=== PATIENT | female | born 1970 ===

== ENCOUNTER → 2021-04-24 07:14 | Outpatient (CLI) | payer OTHER | END | disposition home or self-care (01) | LOC: LAB 07:14 | PROVIDERS: ATTEND Internal Medicine Cardiovascular Disease | DX: I10 Essential (primary) hypertension (principal); I11.9 Hypertensive heart disease without heart failure; E13.9 Other specified diabetes mellitus without complications ==

== ENCOUNTER 2021-08-13 08:00 | Outpatient (CLI) | payer OTHER | END 2021-08-13 08:30 | disposition home or self-care (01) | LOC: PPH VACUNA 08:00 | PROVIDERS: ATTEND Emergency Medicine Pediatric Emergency Medicine | DX: Z23 Encounter for immunization (principal) ==

== ENCOUNTER 2021-08-22 08:00 | Outpatient (CLI) | payer OTHER | END 2021-08-22 08:15 | disposition home or self-care (01) | LOC: PPH VACUNA 08:00 | PROVIDERS: ATTEND Emergency Medicine Pediatric Emergency Medicine | DX: Z23 Encounter for immunization (principal) ==

== ENCOUNTER 2021-09-25 08:22 | Outpatient (CLI) | payer OTHER | END 2021-09-25 12:58 | disposition home or self-care (01) | LOC: RAD 08:22 | DX: M54.59 Other low back pain (principal) ==

== ENCOUNTER 2021-09-27 07:26 | Outpatient (CLI) | payer OTHER | END 2021-09-27 07:34 | disposition home or self-care (01) | LOC: RAD 07:26 | PROVIDERS: ATTEND Internal Medicine Cardiovascular Disease | DX: M51.34 Other intervertebral disc degeneration, thoracic region (principal) ==

== ENCOUNTER 2021-10-26 08:31 | Outpatient (CLI) | payer OTHER | END 2021-10-26 08:37 | disposition home or self-care (01) | LOC: MRI 08:31 | PROVIDERS: ATTEND Orthopaedic Surgery Orthopaedic Surgery of the Spine | DX: M43.04 Spondylolysis, thoracic region (principal) | CPT/HCPCS: 72146 ==

== ENCOUNTER 2022-01-24 06:14 | Outpatient (CLI) | payer OTHER | END 2022-01-24 06:15 | disposition home or self-care (01) | LOC: LAB 06:14 | PROVIDERS: ATTEND Internal Medicine Cardiovascular Disease | DX: E03.9 Hypothyroidism, unspecified (principal); I10 Essential (primary) hypertension; I11.9 Hypertensive heart disease without heart failure; E78.2 Mixed hyperlipidemia; E55.9 Vitamin D deficiency, unspecified ==